=== PATIENT | male | born 1985 | race Caucasian/White ===

== ENCOUNTER 2020-06-06 13:13 | Outpatient (REF) | payer OTHER, SELFPAY | END 2020-06-06 13:14 | disposition home or self-care (01) | LOC: HO.LAB 13:13 | PROVIDERS: Visit Provider Internal Medicine | DX: Z20.828 Contact with and (suspected) exposure to other viral communicable diseases (principal) | CPT/HCPCS: C9803; U0003 ==

== ENCOUNTER 2020-08-07 10:19 | Outpatient (REF) | payer OTHER, SELFPAY | END 2020-08-07 10:20 | disposition home or self-care (01) | LOC: HO.LAB 10:19 | PROVIDERS: Visit Provider Internal Medicine | DX: Z20.822 Contact with and (suspected) exposure to COVID-19 (principal) | CPT/HCPCS: 36415; C9803; U0003; U0005 ==

== ENCOUNTER 2020-08-18 11:00 | Outpatient (REF) | payer OTHER, SELFPAY | END 2020-08-18 11:01 | disposition home or self-care (01) | LOC: HO.LAB 11:00 | PROVIDERS: Visit Provider Internal Medicine | DX: Z20.822 Contact with and (suspected) exposure to COVID-19 (principal) | CPT/HCPCS: 36415; C9803; U0003; U0005 ==